=== PATIENT | male | born 1970 | race Caucasian/White ===

== ENCOUNTER → 2018-11-11 | Outpatient (CLI) | payer BC ==
--- NOTE | 2018-11-11 18:26 | REP ---
Left knee series: Five views. History: Contusion. Findings: Five views of the left knee show superior pole articular spurring of the patella consistent with early osteoarthritis. No fracture, subluxation, or joint effusion is evident. Impression: Mild patellar spurring. No acute bony abnormality. Electronically Signed by Kelechi Sherman MD 11/11/2018 09:12 P
== END ==
LOC: M WUC 17:13
PROVIDERS: ATTEND Physician Assistant
DX: M25.762 Osteophyte, left knee (principal)